=== PATIENT | female | born 1985 | race American Indian/Alaskan Native ===

== ENCOUNTER 2017-11-02 20:56 | Emergency (ER) | payer MEDICAID, OTHER ==
[2017-11-02 21:34] VITALS: BP 125/83
[2017-11-02] MEDS ORDERED: Acetaminophen/HYDROcodone 325-10 MG Tab PO ONE (23:22)
--- NOTE | 2017-11-02 23:26 | EDM.PDOC ---
ED HPI GENERAL MEDICAL PROBLEM - General Chief Complaint: Lower Extremity Injury/Pain Stated Complaint: KNEE PAIN [id number] Time Seen by Provider: 11/02/17 23:23 Source of Information: Reports: Patient History Limitations: Reports: No Limitations - History of Present Illness INITIAL COMMENTS - FREE TEXT/NARRATIVE: twisted it 2 days ago but getting better but getting worse. Left Knee Pain Score (Numeric/FACES): 10 - Related Data Allergies Allergy/AdvReac Type Severity Reaction Status Date / Time No Known Allergies Allergy Verified 11/02/17 21:29 Home Meds: Home Meds . [No Known Home Meds] 12/11/15 [History] Past Medical History HEENT History: Reports: Impaired Vision Cardiovascular History: Reports: None Respiratory History: Reports: None Gastrointestinal History: Reports: GERD Genitourinary History: Reports: None ECOLOGY TEACHER History: Reports: None Musculoskeletal History: Reports: None Neurological History: Reports: None Psychiatric History: Reports: None Endocrine/Metabolic History: Reports: None Hematologic History: Reports: None Immunologic History: Reports: None Oncologic (Cancer) History: Reports: None Dermatologic History: Reports: None - Past Surgical History Cardiovascular Surgical History: Reports: None Respiratory Surgical History: Reports: None GI Surgical History: Reports: Appendectomy, Cholecystectomy Female Surgical History: Reports: None Musculoskeletal Surgical History: Reports: Other (See Below) Other Musculoskeletal Surgeries/Procedures:: right ankle Social & Family History - Tobacco Use Smoking Status *Q: Light Tobacco Smoker Years of Tobacco use: 10 Packs/Tins Daily: 0.2 - Recreational Drug Use Recreational Drug Use: No Review of Systems - Review of Systems Review Of Systems: ROS reveals no pertinent complaints other than HPI. ED EXAM, GENERAL - Physical Exam Exam: See Below Exam Limited By: No Limitations General Appearance: Alert, WD/WN, Mild Distress, Other (tearful) Ears: Hearing Grossly Normal Throat/Mouth: Normal Voice, No Airway Compromise Head: Atraumatic Neck: Non-Tender, Full Range of Motion Respiratory/Chest: No Respiratory Distress Cardiovascular: Regular Rate, Rhythm GI/Abdominal: Soft, Non-Tender Extremities: Other (left knee swollen without gross D/D, NV wnl, gait limited to pain) Neurological: Alert, Oriented, Normal Cognition, No Motor/Sensory Deficits Psychiatric: Tearful Skin Exam: Warm, Dry, Normal Color Lymphatic: No Adenopathy Course - Vital Signs Last Recorded V/S: Last Vital Signs Temp 36.7 C 11/02/17 21:33 Pulse 88 11/02/17 21:33 Resp 20 11/02/17 21:33 BP 125/83 11/02/17 21:33 Pulse Ox 100 11/02/17 21:33 - Orders/Labs/Meds Orders: Active Orders 24 hr Category Date Time Status Acetaminophen/HYDROcodone [Mellen 325-10 MG] Med 11/02/17 23:22 Once 1 tab PO ONETIME ONE Medication Orders Hydrocodone Bitart/Acetaminophen (Mellen 325-10 Mg) 1 tab PO ONETIME ONE Stop: 11/02/17 23:23 Meds: Medications Generic Name Dose Route Start Last Admin Trade Name Freq PRN Reason Stop Dose Admin Hydrocodone Bitart/Acetaminophen 1 tab 11/02/17 23:22 Mellen 325-10 Mg PO 11/02/17 23:23 ONETIME ONE Departure - Departure Time of Disposition: 23:25 Disposition: Home, Self-Care 01 Condition: Good Clinical Impression: Sprain of knee - Discharge Information Instructions: Knee Sprain, [id number] Additional Instructions: 1) wear MATEUSZ for comfort 2) elevate leg as much as possible next 48 hours 3) see clinic Saturday for MRI SCAN fro internal injuries rx given; vicodin 5/325mg bid prn x 12 - My Orders Last 24 Hours: My Active Orders 11/02/17 23:22 Acetaminophen/HYDROcodone [Mellen 325-10 MG] 1 tab PO ONETIME ONE - Assessment/Plan Last 24 Hours: My Active Orders 11/02/17 23:22 Acetaminophen/HYDROcodone [Mellen 325-10 MG] 1 tab PO ONETIME ONE
== END 2017-11-02 23:30 | disposition home or self-care (01) ==
LOC: DL.ED 20:56
DX: S83.92XA Sprain of unspecified site of left knee, initial encounter (principal); F17.210 Nicotine dependence, cigarettes, uncomplicated; X50.1XXA Overexertion from prolonged static or awkward postures, initial encounter
CPT/HCPCS: 73562; 99283; A9270